=== PATIENT | male | born 1995 | race African-American/Black ===

== ENCOUNTER 2017-11-08 15:21 | Emergency (ER) | payer OTHER ==
[~2017-11-08] VITALS: Ht 165.1 cm; Wt 63.5 kg
--- NOTE | 2017-11-08 15:25 | NUR ---
[id number] custody-c/o forehead laceration s/p hitting his head to the window of police car. no KO. A/O x 4, breathing even and unlabored. no sob, nad, vitals stable. safety and comfort measures in place. awaiting md orders.
[2017-11-08] MEDS ORDERED: LIDOCAINE 1%-EPI 1:100,000 20 ML VIAL ONE (15:42)
[2017-11-08] MEDS ORDERED: LIDOCAINE 1%-EPI 1:100,000 20 ML VIAL TP ONE (16:00)
--- NOTE | 2017-11-08 16:05 | NUR ---
ACE RODRIGUEZ AT BEDSIDE FOR SUTURING.
[2017-11-08] MEDS ORDERED: IBUPROFEN 600 MG TABLET PO ONE ×2 (16:17→16:30)
[2017-11-08 17:29] VITALS: BP 128/71
--- NOTE | 2017-11-08 17:30 | NUR ---
Patient discharged in custody in stable condition. Written and verbal after care instructions given. Patient verbalizes understanding of instruction. Left ambulatory with [employer].
== END 2017-11-08 17:30 ==
LOC: ER 15:22
DX: Z02.89 Encounter for other administrative examinations (principal); S01.81XA Laceration without foreign body of other part of head, initial encounter; G89.29 Other chronic pain; M54.5 Low back pain; W22.8XXA Striking against or struck by other objects, initial encounter; Y93.89 Activity, other specified; Y92.89 Other specified places as the place of occurrence of the external cause; Y99.8 Other external cause status
CPT/HCPCS: A4606; A6402; A6403; J3490; Z7610

== ENCOUNTER 2018-05-12 06:02 | Inpatient (IN) | payer SELFPAY ==
[~2018-05-12] VITALS: Ht 170.2 cm; Wt 56.7 kg
--- NOTE | 2018-05-12 06:05 | NUR ---
PT BIBRA FOUND UNRESPONSIVE, SUSPECTED OVERDOSE. PT RECEIVED 4MG NARCAN IV BY RA EN ROUTE. PT OPENS EYES SPONTANEOUSLY, WITHDRAWS FROM PAIN, NO VERBAL RESPONSE. PT PLACED ON CONTINUOUS ROLL TESTER. WILL CONTINUE TO MONITOR
[2018-05-12] MEDS ORDERED: NALOXONE PREFILLED SYRINGE 2 MG/2 ML SYRINGE ONE (06:09)
[2018-05-12] MEDS ORDERED: ONDANSETRON HCL/PF 4 MG/2 ML VIAL ONE (06:09)
[2018-05-12] MEDS: NALOXONE HCL 0.4 MG/ML AMPUL IV ONE ×2 (06:10→06:15)
--- NOTE | 2018-05-12 06:10 | NUR ---
IV INITIATED LEFT AC 18G. LABS DRAWN FROM SITE. IV INTACT AND PATENT.
--- NOTE | 2018-05-12 06:12 | NUR ---
PER VERBAL MD ORDER, ADMINISTERED 1L NS IV X1 NOW, ZOFRAN 4MG IV X1 NOW, NARCAN 2MG IV X1 NOW. ADMINISTERED LEFT AC 18G.
[2018-05-12] MEDS ORDERED: IV NS 0.9% 1,000 ML BAG IV ONE ×2 (06:30→08:30)
[2018-05-12] MEDS ORDERED: ONDANSETRON HCL/PF 4 MG/2 ML VIAL IV ONE (06:30)
--- NOTE | 2018-05-12 06:50 | NUR ---
RADIOLOGIST AT BEDSIDE FOR CXR
--- NOTE | 2018-05-12 07:01 | NUR ---
RECEIVED REPORT FROM TABITHA JOHNSON FOR JANINE.
[2018-05-12 07:19] LABS: BASOPHILS % (AUTO) 0.2 % (0.0-2.0); EOSINOPHILS % (AUTO) 0.8 % (0.0-6.0); HEMATOCRIT 45 % (39-51); HEMOGLOBIN 14.7 g/dL (13.5-17.5); LYMPHOCYTES # (AUTO) 3.2 /CMM (0.8-4.8); LYMPHOCYTES % (AUTO) 15.1 % (20.0-44.0); MEAN CORPUSCULAR HGB CONC 33 g/dl (31.0-36.0); MEAN CORPUSCULAR VOLUME 101 fL (80-96); MONOCYTES # (AUTO) 0.6 /CMM (0.1-1.30); MONOCYTES % (AUTO) 2.8 % (2.0-12.0); NEUTROPHILS # (AUTO) 17.4 /CMM (1.8-8.9); NEUTROPHILS % (AUTO) 81.1 % (43.0-81.0); PLATELET COUNT (AUTO) 311 /CMM (150-450); RED BLOOD CELL COUNT(AUTO) 4.48 MIL/uL (4.5-6.0); WHITE BLOOD COUNT (AUTO) 21.4 K/uL (4.3-11.0)
[2018-05-12 07:20] LABS: ALBUMIN 4.1 g/dL (3.4-5.0); BILIRUBIN,TOTAL 0.2 mg/dL (0.2-1.0); CALCIUM, SERUM 9.3 mg/dL (8.5-10.1); TOTAL PROTEIN, SERUM 7.3 g/dL (6.4-8.2)
--- NOTE | 2018-05-12 07:43 | NUR ---
CALLED FOR TELE BED
--- NOTE | 2018-05-12 07:45 | NUR ---
CALLED [facility] ITS [facility]VA
[2018-05-12 07:51] LABS: ABG BASE EXCESS -5.3 mmol/L; ABG OXYGEN SATURATION 98.5 % (92.0-98.5); ABG PCO2 54.7 mmHg (35.0-45.0); ABG PH 7.236 (7.350-7.450); ABG PO2 189.6 mmHg (75.0-100.0); AaDO2 323.4 mmHg; COHb 0.9 % (0.5-1.5); MetHb 0.6 % (0.0-1.5); SITE, ABG Right Radial; VENT MODE, BG NRB
[2018-05-12 08:00] VITALS: BP 146/84
[2018-05-12] MEDS ORDERED: IV NS 0.9% 1,000 ML IV SCH (08:00)
[2018-05-12] MEDS ORDERED: Z GUARD REMEDY 2 OZ OINT TP PRN (08:00)
[2018-05-12] MEDS ORDERED: ONDANSETRON HCL/PF 4 MG/2 ML VIAL IVP PRN (08:00)
[2018-05-12] MEDS ORDERED: MAG HYDROX/AL HYDROX/SIMETH 30 ML UDC PO PRN (08:00)
[2018-05-12] MEDS ORDERED: ASPIRIN 325 MG TABLET PO ONE (08:00)
[2018-05-12] MEDS ORDERED: MAGNESIUM HYDROXIDE 30 ML UDC PO PRN (08:00)
[2018-05-12] MEDS ORDERED: ASPIRIN 325 MG TABLET ONE (08:23)
--- NOTE | 2018-05-12 08:54 | NUR ---
Patient is resting comfortably in bed with eyes closed. Easily aroused.
--- NOTE | 2018-05-12 08:57 | NUR ---
REPORT GIVEN TO LOLIS LU PATIENT IS MOVING TO ROOM 103-1 TELE.
--- NOTE | 2018-05-12 09:15 | NUR ---
PATIENT TRANSFERRED TO ROOM 103-1 VIA ACLS PROTOCOL. PATIENT A/OX3, NAD, BREATHING EVEN AND UNLABORED, ENDORSED TO LOLIS LU.
[2018-05-12] MEDS: ASPIRIN 325 MG TABLET PO SCH (09:51)
[2018-05-12] MEDS: IV NS 0.9% 1,000 ML IV SCH ×3 (09:51→17:53)
[2018-05-12 10:00] VITALS: BP 82/37
--- NOTE | 2018-05-12 10:00 | NUR ---
RN NOTE; PATIENT RECEIVED ALERT AWAKE ORIENTED X 3. ON 2lpm O2 VIA NC, NO BREATHING DISTRESS NOTED. DENIES PAIN & DISCOMFORT. IV FLUIDS RUNNING ORDERED. SBP 80S, DR. BRUCE MADE AWARE, AT BEDSIDE. ROOM ORIENTATION PROVIDED. SAFETY MEASURES OBSERVED. WILL CONTINUE TO MONITOR.
[2018-05-12] MEDS ORDERED: DEXTROSE 50%-WATER 50 ML DISP.SYRIN IV PRN (11:00)
[2018-05-12] MEDS ORDERED: *INSULIN REGULAR(HUMULIN R)HUM 100 UNIT/ML VIAL SQ PRN (11:00)
[2018-05-12] MEDS ORDERED: INSULIN REGULAR, HUMAN 100 UNIT/ML 3 ML VIAL SQ PRN (11:00)
[2018-05-12 12:00] VITALS: BP 81/42
[2018-05-12] MEDS: BLOOD SUGAR DIAGNOSTIC 1 EACH STRIP VI SCH ×3 (13:21→22:05)
--- NOTE | 2018-05-12 15:00 | NUR ---
RN NOTE; PATIENT VERBALIZE WANTS TO LEAVE FROM HOSPITAL, READY TO USE SIGNS AMA FORM. GIRL FRIEND CAME TO VISIT. EDUCATION GIVEN. DISCUSSED ABOUT LOW BLOOD PRESSURE/HEALTH STATUS, RISK WITH LEAVING OF AMA. PATIENT & GIRLFRIEND VERBALIZE TO UNDERSTAND. PLAN TO STAY TODAY. SAFETY MEASURES OBSERVED. DR. STEVENSON MADE AWARE. WILL CONTINUE TO MONITOR.
[2018-05-12 16:00] VITALS: BP 88/52
[2018-05-12] MEDS: ACETAMINOPHEN 325 MG TABLET PO PRN ×2 (16:50→22:05)
--- NOTE | 2018-05-12 18:04 | NUR ---
RN NOTE; NOTED BLOOD SUGAR 65, ORANGE JUICE GIVEN TO THE PATIENT. PATIENT STATES "I AM FEELING THAT I CAN TOLERATE DINNER/JUICE NOW". CONTINUE TO MONITOR.
[2018-05-12 20:00] VITALS: BP 100/62
--- NOTE | 2018-05-12 20:19 | NUR ---
RUBBISH COLLECTION SUPERVISOR NOTES RECEIVED REPORT FROM WISAM LU. PATIENT A/A/O X3, ABLE TO MAKE NEEDS KNOWN. BREATHING EVEN & UNLABORED, TOLERATING ROOM AIR. DENIES ANY SOB OR DIFFICULTY BREATHING. ON TELE W/ SINUS RHYTHM, HR 87. RIGHT WRIST IV #20 & LEFT AC IV #18 INTACT & PATENT W/ DRESSING CDI & IVF NS INFUSING WELL @ 250 ML/HR. DENIES ANY PAIN OR DISCOMFORT @ THIS TIME. SAFETY MEASURES IN PLACE W/ SIDE RAILS UP & BED LOCKED IN LOWEST POSITION. INSTRUCTED TO USE CALL LIGHT FOR ASSISTANCE. WILL CONTINUE TO MONITOR.
[2018-05-13] VITALS: BP 95/52
[2018-05-13] MEDS: ACETAMINOPHEN 325 MG TABLET PO PRN (03:34)
[2018-05-13 04:00] VITALS: BP 109/55
[2018-05-13 06:37] LABS: BASOPHILS % (AUTO) 0.1 % (0.0-2.0); EOSINOPHILS % (AUTO) 0.3 % (0.0-6.0); HEMATOCRIT 37 % (39-51); HEMOGLOBIN 12.6 g/dL (13.5-17.5); LYMPHOCYTES % (AUTO) 19.6 % (20.0-44.0); MEAN CORPUSCULAR HGB CONC 34 g/dl (31.0-36.0); MEAN CORPUSCULAR VOLUME 95 fL (80-96); MONOCYTES # (AUTO) 0.8 /CMM (0.1-1.30); MONOCYTES % (AUTO) 7.7 % (2.0-12.0); NEUTROPHILS # (AUTO) 7.4 /CMM (1.8-8.9); NEUTROPHILS % (AUTO) 72.3 % (43.0-81.0); PLATELET COUNT (AUTO) 237 /CMM (150-450); RED BLOOD CELL COUNT(AUTO) 3.86 MIL/uL (4.5-6.0); WHITE BLOOD COUNT (AUTO) 10.3 K/uL (4.3-11.0)
[2018-05-13 06:50] LABS: CALCIUM, SERUM 8.2 mg/dL (8.5-10.1); CREATININE 0.9 mg/dL (0.6-1.3); MAGNESIUM 1.9 mg/dL (1.8-2.4); PHOSPHORUS 1.8 mg/dL (2.5-4.9); POTASSIUM 3.6 mmol/L (3.5-5.1)
--- NOTE | 2018-05-13 07:25 | NUR ---
[employer] SIGN LANGUAGE TEACHER OPENING NOTES RECEIVED PATIENT IN STABLE CONDITION. IN NO APPARENT DISTRESS. BEDSIDE RAILS ARE UPX2. BED IS LOCKED AND LOWERED. CALL LIGHT IS WITHIN REACH. IV LINE IS INTACT AND PATENT. WILL CONTINUE TO MONITOR PATIENT.
[2018-05-13 08:00] VITALS: BP 107/71
[2018-05-13] MEDS: BLOOD SUGAR DIAGNOSTIC 1 EACH STRIP VI SCH (08:03)
[2018-05-13] MEDS: ASPIRIN 325 MG TABLET PO SCH (08:03)
--- NOTE | 2018-05-13 10:20 | NUR ---
RN NOTES RECEIVED PATIENT FROM RADHA LU FOR CONTINUITY OF CARE.
[2018-05-13] MEDS ORDERED: K PHOS NEUTRAL 250 MG TABLET PO ONE (10:30)
--- NOTE | 2018-05-13 10:30 | NUR ---
RN NOTES PATIENT DISCHARGED IN STABLE CONDITION WITH BREATHING NORMAL, EVEN AND UNLABORED. NO SOB NOTED. NO ACUTE DISTRESS NOTED. DISCHARGE INSTRUCTION GIVEN WITH FEEDBACK. UNDERSTOOD WELL. IV HEPLOCK REMOVED. PATIENT LEFT WITH GIRLFRIEND IN STABLE CONDITION.
== END 2018-05-13 10:30 | disposition home or self-care (01) | DRG 917 ==
LOC: ER 06:06 → TELE1 08:33 → MEDSG1 05-13 08:48
PROVIDERS: ADMIT Internal Medicine; ATTEND Internal Medicine
DX: T40.1X1A Poisoning by heroin, accidental (unintentional), initial encounter (principal); N17.0 Acute kidney failure with tubular necrosis; I21.A1 Myocardial infarction type 2; R65.11 Systemic inflammatory response syndrome (SIRS) of non-infectious origin with acute organ dysfunction; Y92.009 Unspecified place in unspecified non-institutional (private) residence as the place of occurrence of the external cause; D72.829 Elevated white blood cell count, unspecified; I95.9 Hypotension, unspecified; R73.9 Hyperglycemia, unspecified
CPT/HCPCS: 36415; 36600; 71045-TC; 80048-TC; 80061-TC; 80076-TC; 82803-TC; 82962-TC; 83690-TC; 83735-TC; 84100-TC; 84484-TC; 85025-TC; 87081-TC; 93307-TC; A4606; G0378; J1815; J2310; J2405; J7030; Z7610